=== PATIENT | female | born 1975 | race Hispanic/Latino ===

== ENCOUNTER → 2018-01-10 | Outpatient (CLI) | payer OTHER ==
[~2018-01-10] MED LIST: ALPRAZOLAM 0.5 MG TAB ONE; ALPRAZOLAM 0.5 MG TAB PO ONE; IOPAMIDOL 370 MG/ML 200 ML INFUS..BTL INJ ONE; METOPROLOL TARTRATE 25 MG TAB ONE; METOPROLOL TARTRATE 50 MG TAB PO ONE; METOPROLOL TARTRATE INJ 1 MG/ML VIAL ONE; NITROGLYCERIN 0.4 MG SUBL ONE; SODIUM CHLORIDE 0.9% 100 ML 100 ML ONE
--- NOTE | 2018-01-10 17:18 | Diagnostic Imaging Report ---
EXAM: CALCIUM SCORE AND CORONARY CTA INDICATION: \[id number] \[id number] \S\[id number] EXERCISE STRESS TEST COMPARISON: None. TECHNIQUE: Multi-detector CT technology was employed ([address] 750 HD 64 MDCT [facility]). Minimal slice thickness was performed following the intravenous administration of contrast material. The patient was premedicated with 50 mg by mouth metoprolol and 0.4 mg sublingual nitroglycerin for heart rate control and coronary dilation, respectively. In addition, 0.5 mg of Xanax was administered per mouth. IV CONTRAST: 100 mL of Omnipaque 350 ORAL CONTRAST: None COMPLICATIONS: None RADIATION DOSE: Total DLP: 1570 mGy*cm Estimated effective dose: (DLP x 0.015 x size factor) mSv CTDIvol has been reviewed. It is below the limits set by the Radiation Protocol Committee (RPC). For optimization of anatomic evaluation, multiplanar reconstruction, maximum intensity projections, and advanced 3-D off-line postprocessing were performed on a dedicated stand-alone workstation under the direct supervision of the interpreting physician. QUALITY: Non-diagnostic, Fair, Good, Excellent FINDINGS: CALCIUM SCORE: The observed Agatston Calcium Score of 0. The Agatston score for each vessel is as follows: LM: 0 LAD: 0 LCx: 0 RCA: 0 DISTRIBUTION OF THE CALCIFIED PLAQUES: No identifiable calcified plaques in the coronary arteries. CORONARY ANATOMY: There is normal origin of the coronary arteries. Left Main Coronary Artery: The left main is normal sized but short segment vessel that bifurcates into the LAD and circumflex. There is no evidence of atherosclerotic changes or stenotic disease. Left Anterior Descending Coronary Artery: The LAD is a normal size vessel that wraps around the apex. It gives rise to 2 acute diagonal branches. Minimal noncalcified plaque in the proximal LAD. Otherwise, no evidence of atherosclerotic changes or stenotic disease. Left Circumflex Coronary Artery: The LCX is a normal size vessel, which is non-dominant. It gives rise to 2 obtuse marginal branches. There is no evidence of atherosclerotic changes or stenotic disease. Right Coronary Artery: The RCA is a normal size vessel, which is dominant. It gives rise to a conus branch, AV benja branch, and 3 acute marginal branches. In its distal segment it bifurcates into the PDA and PV branch. There is no evidence of atherosclerotic changes or stenotic disease. CARDIAC MORPHOLOGY AND FUNCTION: The right and left atria and ventricles are morphologically normal. There is normal resting global left ventricular systolic function. Incidental mild lipomatous hypertrophy of the interatrial septum measuring up to 10 mm. Small left atrial diverticulum measuring 6 mm and arising from the right anterior wall, better seen on series 3, image 101. LVEF: 66%, LV end diastolic volume: 109.9 cc LV end systolic volume: 37.4 cc LV stroke volume: 72 cc LIMITED CHEST: Limited views of the visualized chest show no abnormality within chest wall and mediastinum. Few nonspecific noncalcified subcentimeter mediastinal lymph nodes. Mild bilateral central peribronchial wall thickening without bronchiectasis. The visualized portions of the ascending and descending thoracic aorta are of normal size. Small hiatal hernia. LIMITED ABDOMEN: Limited images of the upper abdomen reveal no abnormalities of the visualized organs. BONES: No acute osseous abnormalities. IMPRESSION: 1. Total Agatston Calcium Score: 0. 2. Normal coronary anatomy. 3. Minimal noncalcified plaque in the proximal LAD (1-24%). No atherosclerotic changes or stenotic disease in the remaining coronary arteries. CAD-GSU 1 Reference: [email or web address] 3. Mild central peribronchial wall thickening may relate to reactive airway disease. Signed by: Dr. Anali Alexis M.D. on 01/10/2018 5:14 PM
== END ==
LOC: CT 10:05
PROVIDERS: ATTEND Internal Medicine
DX: R94.39 Abnormal result of other cardiovascular function study (principal)
CPT/HCPCS: 75574; Q9967